=== PATIENT | male | born 2000 | race Caucasian/White ===

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

== ENCOUNTER 2023-03-16 12:58 | Emergency (ER) | payer OTHER, SELFPAY ==
--- NOTE | 2023-03-16 13:04 | ED.URI ---
HPI - URI/Sore Throat General Chief Complaint: Upper Respiratory Infection Stated Complaint: SORE THROAT/WHITE SPOTS Time Seen by Provider: 03/16/23 13:05 Source: patient and RN notes reviewed History of Present Illness HPI Narrative: Patient is a 22-year-old male who presents to urgent care with complaints of a sore throat. Patient states that he has had a sore throat for the last several weeks and was seen while on vacation and placed on Keflex for possibility of strep throat. Patient states that they swab 10 in the facility and was negative. States he has been taking medication as directed and his symptoms have improved greatly. Patient states that he ?just wanted checked again?. States that the white spots have nearly resolved. Patient denies of any fever, nausea or vomiting. No other acute complaints. No acute distress noted. Patient aware of the plan of care. Some parts of this dictation were generated by voice recognition software and may contain typographical and/or grammatical inaccuracies. Related Data Home Medications Medication Instructions Recorded Confirmed No Home Medications 06/29/20 07/10/20 Allergies Allergy/AdvReac Type Severity Reaction Status Date / Time No Known Allergies Allergy Verified 03/16/23 13:01 Review of Systems Review of Systems: CONSTITUTIONAL: Denies fever, chills, or sweats. EYES: Denies visual changes, redness, or discharge. ENT: Reports of improving sore throat CARDIOVASCULAR: Denies chest pain, palpitations, or edema. RESPIRATORY: Denies cough or dyspnea. GASTROINTESTINAL: Denies abdominal pain, nausea, vomiting, or diarrhea. GENITOURINARY: Denies dysuria or hematuria. SKIN: Denies rash or itching. MUSCULOSKELETAL: Denies back pain, joint pain, or myalgia. NEUROLOGIC: Denies headache, numbness, or weakness. All other systems reviewed are negative, except as documented in HPI. [facility] Past Medical History Medical History BMI 22.0-22.9, adult Family History Family History Father Hypertension Grandparent Hypertension Diabetes mellitus Kidney disease Social History Social History Smoking status: Never smoker Alcohol intake: never Living arrangements: with family Occupation/Education: student Gender identity (if verbalized by the patient): Male Comments At the time of my signature, I reviewed and agree with the nursing past medical, surgical, social, and family history. There is no relevant family history pertinent to the patient complaint. Exam Narrative: GENERAL: This is a well-nourished, well-developed patient, in no apparent distress. HEAD: normocephalic, atraumatic. EYES: PERRL. Sclera clear/white. Vision is grossly intact. EARS: External ears normal NOSE: External nose normal with no obvious nasal discharge, nares without redness, no rhinorrhea. THROAT: Mucous membranes moist, mild erythema to posterior oropharynx without exudate or ulceration. Mild postnasal drainage. NECK: Neck supple, non-tender without lymphadenopathy SKIN: warm, intact with no suspicious lesions or rash, good texture and turgor. NEURO: awake, alert, and oriented to person, place and time. There were no obvious focal neurologic abnormalities. EXTREMITIES: No clubbing, cyanosis, or edema. Course Course Level of Care: Express Care Visit Vital Signs Vital signs: Vital Signs Temperature 97.6 F 03/16/23 13:10 Pulse Rate 76 03/16/23 13:10 Respiratory Rate 16 03/16/23 13:10 Blood Pressure 116/81 03/16/23 13:10 Pulse Oximetry 99 03/16/23 13:10 Temperature 97.6 F 03/16/23 13:10 Pulse Rate 76 03/16/23 13:10 Respiratory Rate 16 03/16/23 13:10 Blood Pressure 116/81 03/16/23 13:10 Pulse Oximetry 99 03/16/23 13:10 Reviewed MDM - URI/Sore Throat MDM Narrative [facility]
[2023-03-16 13:10] VITALS: BP 116/81; PULSE 76; RESP 16; TEMP 36.4; O2SAT 99
== END 2023-03-16 13:23 | disposition home or self-care (01) ==
PROVIDERS: Emergency Provider Nurse Practitioner Family
DX: J02.9 Acute pharyngitis, unspecified (principal)
CPT/HCPCS: 87081; 87880; 99213; G0463